=== PATIENT | female | born 1950 | race American Indian/Alaskan Native ===

== ENCOUNTER 2022-04-01 08:46 | Inpatient (IN) | payer OTHER ==
--- NOTE | 2022-04-01 09:27 | Emergency Department Report ---
HPI - General Chief Complaint: Weakness Time Seen by Provider: 04/01/22 09:01 - HPI HPI: Room 19 Patient 71-year-old female present with a chief complaint of lightheadedness/near syncope. The patient states when she woke up this morning she felt fatigued. Patient states she took a shower and then took her dogs outside when she suddenly began to feel dizzy and near syncopal. Patient states her fatigue increase that she came back into her home and sat down. Patient states she still felt dizzy and disoriented so another person in the home called EMS. When EMS arrived they report patient was found to be hypotensive at 70/40 with a heart rate of 36. Patient was administered 1 mg of atropine IV and 500 mils of normal saline with improvement of the patient's vital signs. Upon arrival to the ED the patient was normotensive at 120/74 with a heart rate of 75. Patient states she feels a lot better than when EMS first got there but she still complains of some dizziness currently. Patient denies ever having chest pain, palpitations or nausea/vomiting. Patient states she may have had some shortness of breath. The patient states the only medication she takes are metformin and amlodipine and she has been taking them both for some time. ED Past Medical Hx - Past Medical History Hx Hypertension: Yes Hx Diabetes: Yes Hx of Cancer: Yes (Colon CA status post resection) - Surgical History Hx Breast Surgery: Yes (Lumpectomy (malignant)) Additional Surgical History: Partial colectomy - Family History Family history: no significant - Social History Smoking Status: Never Smoker Substance Use Type: None (Denies illicit drug use) - Medications Home Medications: Home Medications Medication Instructions Recorded Confirmed Last Taken Type Metformin HCl [metFORMIN] 1,000 mg PO BID 04/01/22 04/01/22 Unknown History amLODIPine [Norvasc] 10 mg PO DAILY 04/01/22 04/01/22 Unknown History ED Review of Systems ROS: Stated complaint: WEAKNESS/LOW HEART RATE Other details as noted in HPI Constitutional: malaise Eyes: denies: eye pain ENT: denies: throat pain Respiratory: shortness of breath Cardiovascular: denies: chest pain, palpitations Endocrine: no symptoms reported Gastrointestinal: denies: nausea, vomiting Genitourinary: denies: dysuria Musculoskeletal: denies: back pain Neurological: other (Lightheadedness). denies: headache Physical Exam - Physical Exam Vital Signs: Vital Signs 04/01/22 08:49 Temperature 97.6 F Pulse Rate 75 Respiratory 18 Rate Blood Pressure 120/74 [Left] O2 Sat by Pulse 98 Oximetry Physical Exam: GENERAL: The patient is well-developed well-nourished female lying on stretcher not appearing to be in acute distress. [] HEENT: Normocephalic. Atraumatic. Extraocular motions are intact. Patient has moist mucous membranes. No nystagmus NECK: Supple. Trachea midline CHEST/LUNGS: Clear to auscultation. There is no respiratory distress noted. HEART/CARDIOVASCULAR: Regular. There is no tachycardia. There is no gallop rub or murmur. ABDOMEN: Abdomen is soft, nontender. Patient has normal bowel sounds. There is no abdominal distention. SKIN: There is no rash. There is no edema. There is no diaphoresis. NEURO: The patient is awake, alert, and oriented. The patient is cooperative. The patient has no focal neurologic deficits. The patient has normal speech. Cranial nerves II through XII grossly intact. No dysmetria noted with [id number] bilaterally. MUSCULOSKELETAL: There is no evidence of acute injury. ED Course Vital Signs 04/01/22 08:49 Temperature 97.6 F Pulse Rate 75 Respiratory 18 Rate Blood Pressure 120/74 [Left] O2 Sat by Pulse 98 Oximetry - Consultations Consultation #1: 04/01/22 11:08 [facility] paged 04/01/22 11:22 Case discussed with [place] physician Dr. Cornejo to admit patient at [facility] ED Medical Decision Making - Lab Data Result diagrams: 04/01/22 09:29 04/01/22 09:17 Laboratory Tests 04/01/22 04/01/22 04/01/22 09:17 09:29 09:29 WBC 5.4 RBC 4.47 Hgb 12.7 Hct 37.8 MCV 85 MCH 28 MCHC 34 RDW 13.1 L Plt Count 220 Lymph % (Auto) 11.8 L [place] % (Auto) 4.5 Eos % (Auto) 0.5 Baso % (Auto) 0.5 Lymph # (Auto) 0.6 L [place] # (Auto) 0.2 Eos # (Auto) 0.0 Baso # (Auto) 0.0 Seg Neutrophils % 82.7 H Seg Neutrophils # 4.4 PT 13.9 INR 0.94 Sodium 139 Potassium 3.7 Chloride 102.9 Carbon Dioxide 25 Anion Gap 15 BUN 11 Creatinine 0.8 Estimated GFR > 60 BUN/Creatinine Ratio 14 Glucose 234 H Calcium 8.9 Magnesium 2.10 Total Creatine Kinase 110 CK-MB (CK-2) 1.2 CK-MB (CK-2) Rel Index 1.0 Troponin T < 0.010 TSH Free T4 Urine Color Urine Turbidity Urine pH Urine Protein Urine Glucose (UA) Urine Ketones Urine Blood Urine Nitrite Urine Bilirubin Urine Urobilinogen Ur Leukocyte Esterase Urine WBC (Auto) Urine RBC (Auto) U Epithel Cells (Auto) Urine Bacteria (Auto) Urine Yeast (Budding) 04/01/22 04/01/22 09:29 11:15 WBC RBC Hgb Hct MCV MCH MCHC RDW Plt Count Lymph % (Auto) [place] % (Auto) Eos % (Auto) Baso % (Auto) Lymph # (Auto) [place] # (Auto) Eos # (Auto) Baso # (Auto) Seg Neutrophils % Seg Neutrophils # PT INR Sodium Potassium Chloride Carbon Dioxide Anion Gap BUN Creatinine Estimated GFR BUN/Creatinine Ratio Glucose Calcium Magnesium Total Creatine Kinase CK-MB (CK-2) CK-MB (CK-2) Rel Index Troponin T TSH 0.813 Free T4 1.07 Urine Color Yellow Urine Turbidity Clear Urine pH 6.0 Urine Protein <15 mg/dl Urine Glucose (UA) Neg Urine Ketones Tr Urine Blood Sm Urine Nitrite Neg Urine Bilirubin Neg Urine Urobilinogen < 2 Ur Leukocyte Esterase Mod Urine WBC (Auto) 12.0 H Urine RBC (Auto) 3.0 U Epithel Cells (Auto) 5.0 Urine Bacteria (Auto) 1+ Urine Yeast (Budding) Few - EKG Data -: EKG Interpreted by Me EKG shows normal: sinus rhythm Rate: normal - EKG Data When compared to previous EKG there are: previous EKG unavailable Interpretation: nonspecific ST-T wave sundar (T wave inversion lead V2, V3) - Radiology Data Radiology results: report reviewed (Chest x-ray, CT head), image reviewed (Chest x-ray, CT head) interpreted by me: Chest x-ray-no definite focal infiltrates, no pneumothorax [facility] [address] [place] [address] XRay Report Signed Patient: DUKE NOVA MR#: [id number] 56 : 1950 Acct:[id number] Age/Sex: 71 / F ADM Date: 04/01/22 Loc: ED Attending Dr: Ordering Physician: CHILANGO LAVARADO MD Date of Service: 04/01/22 Procedure(s): XR chest 1V ap Accession Number(s): [id number] cc: CHILANGO ALVARADO MD Fluoro Time In Minutes: CHEST 1 VIEW INDICATION: Bradycardia, hypotension. COMPARISON: None FINDINGS: SUPPORT DEVICES: None. HEART: Within normal limits. LUNGS/PLEURA: No acute air space or interstitial disease. ADDITIONAL FINDINGS: None. IMPRESSION: 1. No acute findings. Signer Name: Geovanni Ha MD Signed: 04/01/2022 9:37 AM Workstation Name: [id number] Transcribed By: VLADIMIR Dictated By: Geovanni Ha MD Electronically Authenticated By: Geovanni Ha MD Signed Date/Time: 04/01/22936 DD/ 6 TD/TT: [facility] [address] [place] [address] Cat Scan Report Signed Patient: DUKE NOVA MR#: [id number] 56 : 1950 Acct:[id number] Age/Sex: 71 / F ADM Date: 04/01/22 Loc: 4A [id number]: FABIO HUSTON MD Ordering Physician: CHILANGO ALVARADO MD Date of Service: 04/01/22 Procedure(s): CT head/brain wo con Accession Number(s): [id number] cc: CHILANGO ALVARADO MD CT HEAD WITHOUT CONTRAST INDICATION / CLINICAL INFORMATION: Lightheadedness. TECHNIQUE: All CT scans at this location are performed using CT dose reduction for ALARA by means of automated exposure control. COMPARISON: None available. FINDINGS: HEMORRHAGE: No evidence of intracranial hemorrhage or extra-axial fluid collection. EXTRA-AXIAL SPACES: Cortical sulci, sylvian fissures and basilar cisterns have an unremarkable appearance. VENTRICULAR SYSTEM: The third and lateral ventricles are of normal size and configuration. CEREBRAL PARENCHYMA: Subtle periventricular and deep white matter lucencies noted consistent with microvascular ischemic change. Findings suggest remote small deep infarction anterior limb right internal capsule and posterior lateral aspect of the left thalamus. No additional areas of abnormal brain parenchymal attenuation are identified. There is no indication of recent infarction. MIDLINE SHIFT OR HERNIATION: There is no mass effect. CEREBELLUM / BRAINSTEM: Brainstem and cerebellum have an unremarkable appearance. MIDLINE STRUCTURES:No abnormalities of the pituitary gland or pineal region are identified. INTRACRANIAL VESSELS:No abnormalities are identified on this noncontrast head CT. ORBITS: Status post bilateral cataract surgery. No additional abnormality. SOFT TISSUES of HEAD: No significant abnormality. CALVARIUM: Evaluation of bone windows reveals no abnormalities. PARANASAL SINUSES / MASTOID AIR CELLS: Visualized portions of the paranasal sinuses are free from inflammatory mucosal disease. Mastoid air cells are normally pneumatized. ADDITIONAL FINDINGS: None. IMPRESSION: 1. 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 2. No acute intracranial abnormality. Signer Name: Piero Plata MD Signed: 04/01/2022 11:55 AM Workstation Name: [id number] Transcribed By: Dictated By: Piero Plata MD Electronically Authenticated By: Piero Plata MD Signed Date/Time: 04/01/22 1155 DD/ 1148 TD/TT: - Differential Diagnosis Symptomatic bradycardia, sick sinus syndrome, hypothyroidism, Critical care attestation.: If time is entered above; I have spent that time in minutes in the direct care of this critically ill patient, excluding procedure time. ED Disposition Clinical Impression: Symptomatic bradycardia Disposition: ADMITTED INPATIENT Is pt being admited?: Yes Does the pt Need Aspirin: Yes Condition: Fair Referrals: PB ANTONIO MD [Primary Care Provider] - 3-5 Days Time of Disposition: 12:12 (Care transferred to hospitalist (Dr. Huston))
--- NOTE | 2022-04-01 09:41 | XRay Report ---
CHEST 1 VIEW INDICATION: Bradycardia, hypotension. COMPARISON: None FINDINGS: SUPPORT DEVICES: None. HEART: Within normal limits. LUNGS/PLEURA: No acute air space or interstitial disease. ADDITIONAL FINDINGS: None. IMPRESSION: 1. No acute findings. Signer Name: Geovanni Ha MD Signed: 04/01/2022 9:37 AM Workstation Name: [id number]
[2022-04-01 09:59] LABS: Basophils % (Auto) 0.5 % (0.0-1.8); Eosinophils % (Auto) 0.5 % (0.0-4.3); Hematocrit 37.8 % (30.3-42.9); Hemoglobin 12.7 gm/dl (10.1-14.3); Lymphocytes # (Auto) 0.6 K/mm3 (1.2-5.4); Lymphocytes % (Auto) 11.8 % (13.4-35.0); Mean Corpuscular HGB Conc 34 % (30-34); Mean Corpuscular Volume 85 fl (79-97); Monocytes # (Auto) 0.2 K/mm3 (0.0-0.8); Monocytes % (Auto) 4.5 % (0.0-7.3); Platelet Count 220 K/mm3 (140-440); Red Blood Count 4.47 M/mm3 (3.65-5.03); Red Cell Distribution Width 13.1 % (13.2-15.2)
[2022-04-01 10:11] LABS: INR 0.94 (0.87-1.13)
[2022-04-01 10:20] LABS: BUN/Creatinine Ratio 14; Blood Urea Nitrogen 11 mg/dL (7-17); Calcium 8.9 mg/dL (8.4-10.2); Creatine Kinase MB 1.2 ng/mL (0.0-4.0); Hemolysis Index 10
[2022-04-01 10:26] LABS: Free T4 (Free Thyroxine) 1.07 ng/dL (0.76-1.46)
--- NOTE | 2022-04-01 11:01 | Electrocardiograph Report ---
[facility] Test Date: 2022-04-01 Test Time: 09:04:49 Pat Name: DUKE NOVA Department: Room: Gender: F Machine [employer]: TV : 1950 Requested By: CHILANGO ALVARADO Order Number: [id number] Reading MD: Ajith Oneill Measurements Intervals Chrisman Rate: 69 P: 55 VT: 165 QRS: -23 QRSD: 91 T: 6 QT: 416 QTc: 445 Interpretive Statements Sinus rhythm INCOMPLETE RIGHT BUNDLE BRANCH BLOCK Probable left atrial enlargement Probable left ventricular hypertrophy Borderline T abnormalities, diffuse leads No previous ECG available for comparison Electronically Signed On 04-01-2022 11:00:57 EDT by Ajith Oneill
[2022-04-01] MEDS ORDERED: ACETAMINOPHEN 325 MG TAB PO PRN (11:23)
[2022-04-01] MEDS ORDERED: MORPHINE 2 MG/1 ML INJ IV PRN (11:23)
[2022-04-01] MEDS ORDERED: ONDANSETRON 4 MG/2 ML INJ IV PRN (11:23)
[2022-04-01 11:59] LABS: Bilirubin,Urine NEG (Negative); Blood,Urine SM (Negative); Color,Urine Yellow (Yellow); Protein,Urine <15 mg/dL mg/dL (Negative)
--- NOTE | 2022-04-01 12:00 | Cat Scan Report ---
CT HEAD WITHOUT CONTRAST INDICATION / CLINICAL INFORMATION: Lightheadedness. TECHNIQUE: All CT scans at this location are performed using CT dose reduction for ALARA by means of automated e xposure control. COMPARISON: None available. FINDINGS: HEMORRHAGE: No evidence of intracranial hemorrhage or extra-axial fluid collection. EXTRA-AXIAL SPACES: Cortical sulci, sylvian fissures and basilar cisterns have an unremarkable appear ance. VENTRICULAR SYSTEM: The third and lateral ventricles are of normal size and configuration. CEREBRAL PARENCHYMA: Subtle periventricular and deep white matter lucencies noted consistent with anh rovascular ischemic change. Findings suggest remote small deep infarction anterior limb right interna l capsule and posterior lateral aspect of the left thalamus. No additional areas of abnormal brain pa renchymal attenuation are identified. There is no indication of recent infarction. MIDLINE SHIFT OR HERNIATION: There is no mass effect. CEREBELLUM / BRAINSTEM: Brainstem and cerebellum have an unremarkable appearance. MIDLINE STRUCTURES:No abnormalities of the pituitary gland or pineal region are identified. INTRACRANIAL VESSELS:No abnormalities are identified on this noncontrast head CT. ORBITS: Status post bilateral cataract surgery. No additional abnormality. SOFT TISSUES of HEAD: No significant abnormality. CALVARIUM: Evaluation of bone windows reveals no abnormalities. PARANASAL SINUSES / MASTOID AIR CELLS: Visualized portions of the paranasal sinuses are free from inf lammatory mucosal disease. Mastoid air cells are normally pneumatized. ADDITIONAL FINDINGS: None. IMPRESSION: 1. 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 2. No acute intracranial abnormality. Signer Name: Piero Plata MD Signed: 04/01/2022 11:55 AM Workstation Name: [id number]
[2022-04-01 12:06] LABS: Bacteria,Urine 1+ /HPF (Negative); Urobilinogen,Urine < 2 mg/dL (<2.0)
[2022-04-01] MEDS ORDERED: traMADol 50 MG TAB PO ONE (21:16)
[2022-04-02] MEDS ORDERED: FLUTICASONE PROPIONATE NASAL SPRAY 16 GM NS PRN (04:37)
--- NOTE | 2022-04-02 06:50 | History and Physical Report ---
History of Present Illness Date of examination: 04/01/22 Date of admission: 04/01/22 11:23 Chief complaint: Passed out x2 this afternoon History of present illness: 71-year-old female with history of hypertension and type 2 diabetes apparently passed out twice as per the daughter at bedside. [place] lightheaded and passed out. Daughter caught her in time preventing him fall to the floor. Patient conscious about the events and corroborates. As per EMS patient was hypotensive with blood pressure of 70/40 and a heart rate of 36. In the ER bladder and blood pressure improved with IV fluids and atropine. During my examination heart rate versus the 60s consistently. Patient is alert and oriented and giving appropriate history. Moving all 4 extremities. - Past Medical History --Hypertension: Yes --Diabetes: Yes --Colon CA status post resection) - Surgical History --Breast Surgery: Yes (Lumpectomy (malignant)) --Additional Surgical History: Partial colectomy - Family History --Family history: no significant - Social History --Smoking Status: Never Smoker --Substance Use Type: None (Denies illicit drug use) - Medications --Home Medications: Home Medications Medication Instructions Recorded Confirmed Last Taken Type Metformin HCl [metFORMIN] 1,000 mg PO BID 04/01/22 04/01/22 Unknown History amLODIPine [Norvasc] 10 mg PO DAILY 04/01/22 04/01/22 Unknown History Review of Systems ROS: Stated complaint: WEAKNESS/LOW HEART RATE Other details as noted in HPI Constitutional: malaise Eyes: denies: eye pain ENT: denies: throat pain Respiratory: shortness of breath Cardiovascular: denies: chest pain, palpitations Endocrine: no symptoms reported Gastrointestinal: denies: nausea, vomiting Genitourinary: denies: dysuria Musculoskeletal: denies: back pain Neurological: other (Lightheadedness). denies: headache Medications and Allergies Allergies Allergy/AdvReac Type Severity Reaction Status Date / Time [id number] Reductase Allergy Unknown Verified 04/01/22 09:24 Inhibitor Home Medications Medication Instructions Recorded Confirmed Last Taken Type Metformin HCl [metFORMIN] 1,000 mg PO BID 04/01/22 04/01/22 Unknown History amLODIPine [Norvasc] 10 mg PO DAILY 04/01/22 04/01/22 Unknown History Active Meds: Active Medications Acetaminophen (Acetaminophen 325 Mg Tab) 650 mg PO Q4H PRN PRN Reason: Pain MILD(1-3)/Fever >100.5/HOPSON Last Admin: 04/01/22 17:33 Dose: 650 mg Fluticasone Propionate (Fluticasone Propionate Nasal [place] 16 Gm) 100 mcg NS QDAY PRN PRN Reason: sinus congestion Last Admin: 04/02/22 05:14 Dose: 100 mcg Morphine Sulfate (Morphine 2 Mg/1 Ml Inj) 2 mg IV Q4H PRN PRN Reason: Pain, Moderate (4-6) Ondansetron HCl (Ondansetron 4 Mg/2 Ml Inj) 4 mg IV Q8H PRN PRN Reason: Nausea And Vomiting Sodium Chloride (Sodium Chloride 0.9% 10 Ml Flush Syringe) 10 ml IV BID YOEL Last Admin: 04/01/22 22:19 Dose: 10 ml Sodium Chloride (Sodium Chloride 0.9% 10 Ml Flush Syringe) 10 ml IV PRN PRN PRN Reason: LINE FLUSH Exam - Constitutional Vitals: Temp Pulse Resp BP Pulse Ox 98.3 F 72 16 148/62 93 04/02/22 05:06 04/02/22 05:06 04/02/22 05:06 04/02/22 05:06 04/02/22 05:06 General appearance: Present: no acute distress, well-nourished - EENT Eyes: Present: PERRL ENT: hearing intact, clear oral mucosa - Neck Neck: Present: supple, normal ROM - Respiratory Respiratory effort: normal Respiratory: bilateral: CTA - Cardiovascular Heart rate: 60 Rhythm: regular Heart Sounds: Present: S1 & S2. Absent: rub, click - Extremities Extremities: no ischemia, pulses intact, pulses symmetrical, No edema Peripheral Pulses: within normal limits - Abdominal General gastrointestinal: Present: soft, non-tender, non-distended, normal bowel sounds Female genitourinary: Present: normal - Integumentary Integumentary: Present: clear, warm, dry - Musculoskeletal Musculoskeletal: gait normal, strength equal bilaterally - Psychiatric Psychiatric: appropriate mood/affect, intact judgment & insight - Neurologic Neurologic: CNII-XII intact, moves all extremities - Allied Health Allied health notes reviewed: nursing, case management HEART Score - HEART Score Troponin: Troponin T < 0.010 ng/mL (0.00-0.029) 04/01/22 09:17 Results - Labs CBC & Chem 7: 04/01/22 09:29 04/01/22 09:17 Labs: Laboratory Last Values WBC 5.4 K/mm3 (4.5-11.0) 04/01/22 09: RBC 4.47 M/mm3 (3.65-5.03) 04/01/22 09: Hgb 12.7 gm/dl (10.1-14.3) 04/01/22: Hct 37.8 % (30.3-42.9) 04/01/22 09: MCV 85 fl (79-97) 04/01/22 09: MCH 28 pg (28-32) 04/01/22 09: MCHC 34 % (30-34) 04/01/22 09: RDW 13.1 % (13.2-15.2) L 04/01/22 09: Plt Count 220 K/mm3 (140-440) 04/01/22 09: Lymph % (Auto) 11.8 % (13.4-35.0) L 04/01/22 09: [place] % (Auto) 4.5 % (0.0-7.3) 04/01/22 09: Eos % (Auto) 0.5 % (0.0-4.3) 04/01/22: Baso % (Auto) 0.5 % (0.0-1.8) 04/01/22: Lymph # (Auto) 0.6 K/mm3 (1.2-5.4) L 04/01/22: [place] # (Auto) 0.2 K/mm3 (0.0-0.8) 04/01/22 09: Eos # (Auto) 0.0 K/mm3 (0.0-0.4) 04/01/22: Baso # (Auto) 0.0 K/mm3 (0.0-0.1) 04/01/22 09: Seg Neutrophils % 82.7 % (40.0-70.0) H 04/01/22 09: Seg Neutrophils # 4.4 K/mm3 (1.8-7.7) 04/01/22 09: PT 13.9 Sec. (12.2-14.9) 04/01/22 09:29 INR 0.94 (0.87-1.13) 04/01/22 09:29 VBG pH 7.298 (7.320-7.420) L 04/01/22 Unknown Sodium 139 mmol/L (137-145) 04/01/22 09:17 Potassium 3.7 mmol/L (3.6-5.0) 04/01/22 09:17 Chloride 102.9 mmol/L (98-107) 04/01/22 09:17 Carbon Dioxide 25 mmol/L (22-30) 04/01/22 09:17 Anion Gap 15 mmol/L 04/01/22 09:17 BUN 11 mg/dL (7-17) 04/01/22 09:17 Creatinine 0.8 mg/dL (0.6-1.2) 04/01/22 09:17 Estimated GFR > 60 ml/min 04/01/22 09:17 BUN/Creatinine Ratio 14 % 04/01/22 09:17 Glucose 234 mg/dL (65-100) H 04/01/22 09:17 Calcium 8.9 mg/dL (8.4-10.2) 04/01/22 09:17 Magnesium 2.10 mg/dL (1.7-2.3) 04/01/22 09:17 Total Creatine Kinase 110 units/L (30-135) 04/01/22 09:17 CK-MB (CK-2) 1.2 ng/mL (0.0-4.0) 04/01/22 09:17 CK-MB (CK-2) Rel Index 1.0 (0-4) 04/01/22 09:17 Troponin T < 0.010 ng/mL (0.00-0.029) 04/01/22 09:17 TSH 0.813 mlU/mL (0.270-4.200) 04/01/22 09:29 Free T4 1.07 ng/dL (0.76-1.46) 04/01/22 09:29 Urine Color Yellow (Yellow) 04/01/22 11:15 Urine Turbidity Clear (Clear) 04/01/22 11:15 Urine pH 6.0 (5.0-7.0) 04/01/22 11:15 Urine Protein <15 mg/dl mg/dL (Negative) 04/01/22 11:15 Urine Glucose (UA) Neg mg/dL (Negative) 04/01/22 11:15 Urine Ketones Tr mg/dL (Negative) 04/01/22 11:15 Urine Blood Sm (Negative) 04/01/22 11:15 Urine Nitrite Neg (Negative) 04/01/22 11:15 Urine Bilirubin Neg (Negative) 04/01/22 11:15 Urine Urobilinogen < 2 mg/dL (<2.0) 04/01/22 11:15 Ur Leukocyte Esterase Mod (Negative) 04/01/22 11:15 Urine WBC (Auto) 12.0 /HPF (0.0-6.0) H 04/01/22 11:15 Urine RBC (Auto) 3.0 /HPF (0.0-6.0) 04/01/22 11:15 U Epithel Cells (Auto) 5.0 /HPF (0-13.0) 04/01/22 11:15 Urine Bacteria (Auto) 1+ /HPF (Negative) 04/01/22 11:15 Urine Yeast (Budding) Few /HPF 04/01/22 11:15 - Imaging and Cardiology EKG: report reviewed (Sinus rhythm heart rate of 69/min) Chest x-ray: report reviewed Imaging and Cardiology: . Head CT Microvascular ischemic changes and cerebral remote small deep infarctions as noted No acute intracranial abnormality Chest x-ray No acute findings Jones/IV: Voiding Method Toilet Assessment and Plan Advance Directives: Yes (Full code) VTE prophylaxis?: Chemical Plan of care discussed with patient/family: Yes - Patient Problems (1) Syncope and collapse Current Visit: Yes Status: Acute Plan to address problem: Syncope work-up Echocardiogram for ejection fraction and wall motion abnormalities and valvular function Carotid duplex scan (2) Symptomatic bradycardia Current Visit: Yes Status: Acute Plan to address problem: Bradycardia resolved Cardiology consult requested (3) Hypertension Current Visit: Yes Status: Chronic Qualifiers: Hypertension type: primary hypertension Qualified Code(s): I10 - Essential (primary) hypertension Plan to address problem: Continue antihypertensives and adjust medicines as necessary (4) T2DM (type 2 diabetes mellitus) Current Visit: Yes Status: Chronic 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 Patient is full code. Patient acknowledged understanding with the care plan. +30 minutes.
--- NOTE | 2022-04-02 08:12 | Progress Note ---
Assessment and Plan Assessment and plan: Advance Directives: Yes (Full code) VTE prophylaxis?: Chemical Plan of care discussed with patient/family: Yes - Patient Problems --Syncope and collapse/due to autonomic malfunction Fall precautions, orthostats Syncope work-up CT head without contrast:Microvascular ischemic changes and several remote small deep infarctions noted no acute intracranial abnormality Carotid Doppler less than 50% stenosis bilateral internal carotid arteries Echocardiogram; LVEF 55 to 60%, mild concentric left ventricular hypertrophy Chest x-ray no acute abnormality noted. Physical therapy occupational therapy Discharge planning per case management when patient is stable --Symptomatic bradycardia/resolved Brief episode of bradycardia last night on the ER Hold beta-blockers, fall precautions Cardiology evaluation and recommendation noted and appreciated Recommend continuous Holter for 1 month monitoring --Hypertension. Moderate control Continue antihypertensives and as needed medications Advised compliance with medications --T2DM (type 2 diabetes mellitus) Accu-Cheks , sliding scale coverage , ADA diet , insulin as needed continue metformin and coverage Check hemoglobin A1c --DVT prophylaxis On subcu heparin and GI prophylaxis -- Advance care planning Disease education conducted care plan discussed, prognosis and diagnosis discussed. Patient reports discussed, cardiology evaluation and recommendations discussed Patient has few questions, answered all of them, patient verbalized understanding Patient is full code. Patient acknowledged understanding with the care plan. +30 minutes. We will closely monitor the patient and adjust the management as needed Plan of care patient and her nurse Discharge planning; per case management Disposition; follow clinically, follow PT evaluation recommendation Discharge home tomorrow if stable [place] patient; call [phone] discussed the case with [place] physician, physician was busy I left a callback number to discuss the patient's plan of care. History Interval history: I seen and examined the patient at the bedside Patient chart and medications reviewed Patient was admitted with syncopal episode x2 Syncope work-up is in progress Patient complains of some mild dizziness Vital signs reviewed Hospitalist Physical - Constitutional Vitals: Temp Pulse Resp BP Pulse Ox 98.4 F 70 16 137/65 97 04/02/22 07:35 04/02/22 07:35 04/02/22 07:35 04/02/22 07:35 04/02/22 07:35 General appearance: Present: no acute distress, well-nourished - EENT Eyes: Present: PERRL, EOM intact - Neck Neck: Present: supple, normal ROM - Respiratory Respiratory effort: normal Respiratory: bilateral: diminished, negative: rales, rhonchi, wheezing - Cardiovascular Rhythm: regular Heart Sounds: Present: S1 & S2 - Extremities Extremities: no ischemia, No edema - Abdominal General gastrointestinal: soft, non-tender, non-distended, normal bowel sounds - Integumentary Integumentary: Present: clear, warm - Psychiatric Psychiatric: appropriate mood/affect, cooperative - Neurologic Neurologic: CNII-XII intact, moves all extremities HEART Score - HEART Score Troponin: Troponin T < 0.010 ng/mL (0.00-0.029) 04/01/22 09:17 Results - Labs CBC & Chem 7: 04/01/22 09:29 04/01/22 09:17 Labs: Laboratory Last Values WBC 5.4 K/mm3 (4.5-11.0) 04/01/22 09: RBC 4.47 M/mm3 (3.65-5.03) 04/01/22 09: Hgb 12.7 gm/dl (10.1-14.3) 04/01/22 09: Hct 37.8 % (30.3-42.9) 04/01/22 09: MCV 85 fl (79-97) 04/01/22 09: MCH 28 pg (28-32) 04/01/22 09: MCHC 34 % (30-34) 04/01/22 09: RDW 13.1 % (13.2-15.2) L 04/01/22 09: Plt Count 220 K/mm3 (140-440) 04/01/22 09: Lymph % (Auto) 11.8 % (13.4-35.0) L 04/01/22 09: [place] % (Auto) 4.5 % (0.0-7.3) 04/01/22 09: Eos % (Auto) 0.5 % (0.0-4.3) 04/01/22 09: Baso % (Auto) 0.5 % (0.0-1.8) 04/01/22 09: Lymph # (Auto) 0.6 K/mm3 (1.2-5.4) L 04/01/22 09: [place] # (Auto) 0.2 K/mm3 (0.0-0.8) 04/01/22 09:29 Eos # (Auto) 0.0 K/mm3 (0.0-0.4) 04/01/22 09:29 Baso # (Auto) 0.0 K/mm3 (0.0-0.1) 04/01/22 09:29 Seg Neutrophils % 82.7 % (40.0-70.0) H 04/01/22 09:29 Seg Neutrophils # 4.4 K/mm3 (1.8-7.7) 04/01/22 09:29 PT 13.9 Sec. (12.2-14.9) 04/01/22 09:29 INR 0.94 (0.87-1.13) 04/01/22 09:29 VBG pH 7.298 (7.320-7.420) L 04/01/22 Unknown Sodium 139 mmol/L (137-145) 04/01/22 09:17 Potassium 3.7 mmol/L (3.6-5.0) 04/01/22 09:17 Chloride 102.9 mmol/L (98-107) 04/01/22 09:17 Carbon Dioxide 25 mmol/L (22-30) 04/01/22 09:17 Anion Gap 15 mmol/L 04/01/22 09:17 BUN 11 mg/dL (7-17) 04/01/22 09:17 Creatinine 0.8 mg/dL (0.6-1.2) 04/01/22 09:17 Estimated GFR > 60 ml/min 04/01/22 09:17 BUN/Creatinine Ratio 14 % 04/01/22 09:17 Glucose 234 mg/dL (65-100) H 04/01/22 09:17 Calcium 8.9 mg/dL (8.4-10.2) 04/01/22 09:17 Magnesium 2.10 mg/dL (1.7-2.3) 04/01/22 09:17 Total Creatine Kinase 110 units/L (30-135) 04/01/22 09:17 CK-MB (CK-2) 1.2 ng/mL (0.0-4.0) 04/01/22 09:17 CK-MB (CK-2) Rel Index 1.0 (0-4) 04/01/22 09:17 Troponin T < 0.010 ng/mL (0.00-0.029) 04/01/22 09: TSH 0.813 mlU/mL (0.270-4.200) 04/01/22 09: Free T4 1.07 ng/dL (0.76-1.46) 04/01/22 09:29 Urine Color Yellow (Yellow) 04/01/22 11:15 Urine Turbidity Clear (Clear) 04/01/22 11:15 Urine pH 6.0 (5.0-7.0) 04/01/22 11:15 Urine Protein <15 mg/dl mg/dL (Negative) 04/01/22 11:15 Urine Glucose (UA) Neg mg/dL (Negative) 04/01/22 11:15 Urine Ketones Tr mg/dL (Negative) 04/01/22 11:15 Urine Blood Sm (Negative) 04/01/22 11:15 Urine Nitrite Neg (Negative) 04/01/22 11:15 Urine Bilirubin Neg (Negative) 04/01/22 11:15 Urine Urobilinogen < 2 mg/dL (<2.0) 04/01/22 11:15 Ur Leukocyte Esterase Mod (Negative) 04/01/22 11:15 Urine WBC (Auto) 12.0 /HPF (0.0-6.0) H 04/01/22 11:15 Urine RBC (Auto) 3.0 /HPF (0.0-6.0) 04/01/22 11:15 U Epithel Cells (Auto) 5.0 /HPF (0-13.0) 04/01/22 11:15 Urine Bacteria (Auto) 1+ /HPF (Negative) 04/01/22 11:15 Urine Yeast (Budding) Few /HPF 04/01/22 11:15 Jones/IV: Voiding Method Toilet Active Medications - Current Medications Current Medications: Generic Name Dose Route Start Last Admin Trade Name Freq PRN Reason Stop Dose Admin Acetaminophen 650 mg 04/01/22 11:23 04/01/22 17:33 Acetaminophen 325 Mg Tab PO 650 mg Q4H PRN Administration Pain MILD(1-3)/Fever >100.5/HOPSON Fluticasone Propionate 100 mcg 04/02/22 04:37 04/02/22 05:14 Fluticasone Propionate Nasal [place] 16 Gm NS 100 mcg QDAY PRN Administration sinus congestion Morphine Sulfate 2 mg 04/01/22 11:23 Morphine 2 Mg/1 Ml Inj IV Q4H PRN Pain, Moderate (4-6) Ondansetron HCl 4 mg 04/01/22 11:23 Ondansetron 4 Mg/2 Ml Inj IV Q8H PRN Nausea And Vomiting Sodium Chloride 10 ml 04/01/22 22:00 04/01/22 22:19 Sodium Chloride 0.9% 10 Ml Flush Syringe IV 10 ml BID YOEL Administration Sodium Chloride 10 ml 04/01/22 11:23 Sodium Chloride 0.9% 10 Ml Flush Syringe IV PRN PRN LINE FLUSH
--- NOTE | 2022-04-02 11:08 | Consultation ---
History of Present Illness Consult date: 04/02/22 Consult reason: bradycardia, syncope History of present illness: The patient is a 71-year-old woman who presented to the hospital with a 2-day history of weakness and syncope. Her symptoms began 2 days ago, following a routine visit to her doctor's office at [place], states that she received tetanus and shingles vaccines. Later that afternoon and evening, she suffered a cold exposure, was outside too late at night while her car was being repaired. The next day, she states that she felt weak and was unable to get out of bed, and when she did eventually was too weak to stand up, resulting in multiple falls. A neighbor called the EMS. The district court reporter are reported to have found her with a systolic blood pressure of 70, and a heart rate of 36. She was given an IV medication which brought up her heart rate, presumably atropine. Since her hospitalization, there have been no further symptoms, ECG on presentation was normal sinus rhythm at 69. On nanny/household manager, there has been no further bradycardia reported. Comorbidities include chronic hypertension for which she was on amlodipine, and diabetes for which she was on metformin. At the time of her contact with EMS she states that her blood sugar measured at 250. Additional work-up on presentation, chest x-ray was normal-sized cardiac silhouette and clear lungs. A thyroid stimulating hormone level measured in the emergency room was normal. Past History Past Medical History: diabetes, hypertension Medications and Allergies Allergies Allergy/AdvReac Type Severity Reaction Status Date / Time [id number] Reductase Allergy Unknown Verified 04/01/22 09:24 Inhibitor Home Medications Medication Instructions Recorded Confirmed Last Taken Type Metformin HCl [metFORMIN] 1,000 mg PO BID 04/01/22 04/01/22 Unknown History amLODIPine [Norvasc] 10 mg PO DAILY 04/01/22 04/01/22 Unknown History Active Meds: Active Medications Acetaminophen (Acetaminophen 325 Mg Tab) 650 mg PO Q4H PRN PRN Reason: Pain MILD(1-3)/Fever >100.5/HOPSON Last Admin: 04/01/22 17:33 Dose: 650 mg Fluticasone Propionate (Fluticasone Propionate Nasal [place] 16 Gm) 100 mcg NS QDAY PRN PRN Reason: sinus congestion Last Admin: 04/02/22 05:14 Dose: 100 mcg Insulin Human Lispro (Insulin Lispro 100 Unit/Ml) 0 unit SUB-Q ACHS YOEL; Protocol Morphine Sulfate (Morphine 2 Mg/1 Ml Inj) 2 mg IV Q4H PRN PRN Reason: Pain, Moderate (4-6) Ondansetron HCl (Ondansetron 4 Mg/2 Ml Inj) 4 mg IV Q8H PRN PRN Reason: Nausea And Vomiting Sodium Chloride (Sodium Chloride 0.9% 10 Ml Flush Syringe) 10 ml IV BID YOEL Last Admin: 04/01/22 22:19 Dose: 10 ml Sodium Chloride (Sodium Chloride 0.9% 10 Ml Flush Syringe) 10 ml IV PRN PRN PRN Reason: LINE FLUSH Review of Systems Cardiovascular: syncope, lightheadedness, no chest pain, no orthopnea, no palpitations, no rapid/irregular heart beat, no edema, no shortness of breath Physical Examination Vital Signs Temp Pulse Resp BP Pulse Ox 97.6 F 75 18 120/74 98 04/01/22 08:49 04/01/22 08:49 04/01/22 08:49 04/01/22 08:49 04/01/22 08:49 General appearance: no acute distress HEENT: Positive: PERRL Neck: Positive: neck supple Cardiac: Positive: Reg Rate and Rhythm Lungs: Positive: clear to auscultation Neuro: Positive: Grossly Intact Abdomen: Positive: Soft Female genitourinary: deferred Skin: Positive: Clear Extremities: Absent: normal Results 04/01/22 09:29 04/01/22 09:17 EKG interpretations - Telemetry EKG Rhythm: Sinus Rhythm (Heart rate 69, left ventricular hypertrophy by voltage criteria, no acute ST or T wave changes) Assessment and Plan - Patient Problems (1) Syncope and collapse Current Visit: Yes Status: Acute Plan to address problem: Patient presents with weakness, and syncope associated with poor oral intake, following tetanus and shingles vaccines. It is uncertain if her renal constitutional symptoms were related to either or both of the vaccine shots she received. Heart rate of 36 at the time of contact with district court reporter is unlikely primary etiology of her syncope. We have ordered an echocardiogram for left ventricular function assessment, continue telemetry monitoring. As outpatient, patient will need 30-day event monitor for bradycardia and syncope assessment.
--- NOTE | 2022-04-02 14:49 | Vascular Lab Report ---
DUPLEX DOPPLER ULTRASOUND CAROTID, BILATERAL INDICATION / CLINICAL INFORMATION: Syncope. COMPARISON: None available. FINDINGS: RIGHT CAROTID: Mild noncalcified atherosclerotic plaque. - PLAQUE ESTIMATE (%): < 50% - CCA velocity: 87 cm/sec. - ICA peak systolic velocity: 108 cm/sec. - ICA/CCA PSV Ratio: Less than 2. Right Vertebral Artery: Antegrade flow. LEFT CAROTID: Mild to moderate noncalcified atherosclerotic plaque. - PLAQUE ESTIMATE (%): < 50% - CCA velocity: 117 cm/sec. - ICA peak systolic velocity: 106 cm/sec. - ICA/CCA PSV Ratio: Less than 2. Left Vertebral Artery: Antegrade flow. IMPRESSION: 1. Right Internal Carotid Artery: Less than 50% diameter stenosis. 2. Left Internal Carotid Artery: Less than 50% diameter stenosis. Velocity criteria are extrapolated from diameter data as defined by the Society of Radiologists in [facility] Consensus Conference, Radiology 2003; 229;340-346. NO STENOSIS (NORMAL) - Plaque = none; ICA PSV < 125 cm/sec; ICA/CCA PSV Ratio < 2.0 <50% STENOSIS - Plaque < 50%; ICA PSV < 125 cm/sec; ICA/CCA PSV Ratio < 2.0 50-69% STENOSIS - Plaque > 50%; ICA PSV = 125-230 cm/sec; ICA/CCA PSV Ratio = 2.0-4.0 >70% BUT <100% STENOSIS - Plaque > 50%; ICA PSV > 230 cm/sec; ICA/CCA PSV Ratio > 4.0 NEAR OCCLUSION - Plaque = visible lumen; ICA PSV = high/low/none; ICA/CCA PSV Ratio = variable TOTAL OCCLUSION - Plaque = no lumen; ICA PSV = none; ICA/CCA PSV Ratio = N/A Scribed by: Palmira Portillo RDMS, RVT, RMSKS Scribed: 04/02/2022 1:42 PM I have reviewed the images, agree with this report, and edited this report as needed. Signer Name: Jos Kimball MD Signed: 04/02/2022 2:44 PM Workstation Name: [id number]
[2022-04-02] MEDS: INSULIN LISPRO 100 UNIT/ML SUB-Q SCH ×2 (15:46→18:55)
[2022-04-02] MEDS ORDERED: HYDROcodone/ACETAMINOPHEN 5-325 MG TAB PO PRN (17:00)
--- NOTE | 2022-04-03 08:55 | Discharge Summary ---
Providers - Providers Date of Admission: 04/01/22 11:23 Date of discharge: 04/03/22 Attending physician: MILAD HERNANDEZ 04/02/22 06:58 Consult to Physician [CONS] Routine Comment: Consulting Provider: CHRISTIAN DOMINGUEZ Physician Instructions: Reason For Exam: Symptomatic bradycardia 04/02/22 08:23 Physical Therapy Evaluation and Treat [CONS] Routine Comment: DC needs Reason For Exam: Syncope/general debility evaluate and treat 04/02/22 19:02 Occupational Therapy Evaluate and Treat [CONS] Routine Comment: Reason For Exam: Evaluate and treat/unsteady gait syncope/DC needs Primary care physician: PB ANTONIO Hospitalization Reason for admission: syncope Condition: Fair Hospital course: The patient is a 71-year-old woman who presented to the hospital with a 2-day history of weakness and syncope. 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 Later that afternoon and evening, she suffered a cold exposure, was outside too late at night while her car was being repaired. The next day, she states that she felt weak and was unable to get out of bed, and when she did eventually was too weak to stand up, resulting in multiple falls. A neighbor called the EMS. The timing machine operator are reported to have found her with a systolic blood pressure of 70, and a heart rate of 36. She was given an IV medication which brought up her heart rate, presumably atropine. Since her hospitalization, there have been no further symptoms, ECG on presentation was normal sinus rhythm at 69. On senior product designer, there has been no further bradycardia reported. Comorbidities include chronic hypertension for which she was on amlodipine, and diabetes for which she was on metformin. At the time of her contact with EMS she states that her blood sugar measured at 250. Additional work-up on presentation, chest x-ray was normal-sized cardiac silhouette and clear lungs. A thyroid stimulating hormone level measured in the emergency room was normal. Cardiology was consulted for further evaluation. Cardiology reports a heart rate of 36 was unlikely primary etiology of presyncope. Cardiology recommended echocardiogram which revealed left ventricular size and function normal with mild concentric left ventricular hypertrophy and LVEF of 55-60%. Patient had mild pulmonary hypertension 35-[address] scan revealed no CVA with microvascular ischemic changes and several remote small deep infarctions but no acute abnormality. Patient is felt to receive maximal hospital benefit and will be discharged home. Cardiology recommends 30-day Holter monitor as outpatient. Patient will have follow-up instructions for cardiology. Dedicated discharge time 32 minutes Disposition: 01 HOME / SELF CARE / HOMELESS Final Discharge Diagnosis (Prints w/discharge instructions): Syncope, autonomic dysfunction, symptomatic bradycardia, hypertension, generalized debility and weakness, diabetes mellitus type 2, Core Measure Documentation - Palliative Care Palliative Care/ Comfort Measures: Not Applicable - Core Measures Any of the following diagnoses?: none Exam - Constitutional Vitals: Temp Pulse Resp BP Pulse Ox 97.8 F 64 16 144/70 98 04/03/22 03:38 04/03/22 03:38 04/03/22 03:38 04/03/22 03:38 04/03/22 03:38 General appearance: Present: no acute distress, well-nourished - EENT Eyes: Present: PERRL ENT: hearing intact, clear oral mucosa - Neck Neck: Present: supple, normal ROM - Respiratory Respiratory effort: normal Respiratory: bilateral: CTA - Cardiovascular Heart Sounds: Present: S1 & S2. Absent: rub, click - Extremities Extremities: pulses symmetrical, No edema Peripheral Pulses: within normal limits - Abdominal General gastrointestinal: Present: soft, non-tender, non-distended, normal bowel sounds Female genitourinary: Present: normal - Integumentary Integumentary: Present: clear, warm, dry - Musculoskeletal Musculoskeletal: gait normal, strength equal bilaterally - Psychiatric Psychiatric: appropriate mood/affect, intact judgment & insight - Neurologic Neurologic: CNII-XII intact, moves all extremities Plan Activity: advance as tolerated Weight Bearing Status: Weight Bear as Tolerated Diet: diabetic Additional Instructions: 30-day Holter monitor with cardiology follow-up as outpatient Follow up with: PB ANTONIO MD [Primary Care Provider] - 3-5 Days CHRISTIAN DOMINGUEZ MD [Staff Physician] - 7 Days
[2022-04-03] MEDS: INSULIN LISPRO 100 UNIT/ML SUB-Q SCH (09:29)
[2022-04-03 10:23] VITALS: BP 128/80
--- NOTE | 2022-04-03 12:26 | Progress Note ---
Assessment and Plan - Patient Problems (1) Syncope and collapse Current Visit: Yes Status: Acute Plan to address problem: Patient presents with weakness, and syncope associated with poor oral intake, following tetanus and shingles vaccines. It is uncertain if her generalized constitutional symptoms were related to either or both of the vaccine shots she received. Heart rate of 36 at the time of contact with rn x ray is unlikely primary etiology of her weakness and syncope. During her period of monitoring in the hospital, she has maintained a normal stable sinus rhythm. Echocardiogram shows normal left ventricular systolic function, ejection fraction 55 to 60%. Stable for cardiac discharge in the absence of further cardiac symptoms. As outpatient, patient will need 30-day event monitor for further cardiac monitoring. Subjective Date of service: 04/03/22 Principal diagnosis: Bradycardia Interval history: Patient is comfortable, no cardiac complaints, no new cardiac events reported. She remains in a stable sinus rhythm, heart rate 77. Objective Vital Signs Temp Pulse Resp Resp BP BP Pulse Ox 04/03/22 10:00 108 H 98 04/03/22 08:37 98.5 F 87 18 128/80 98 04/03/22 03:38 97.8 F 64 16 144/70 98 04/03/22 00:08 98.4 F 65 16 143/75 98 04/02/22 22:00 63 20 98 04/02/22 20:19 98.0 F 69 16 127/58 99 04/02/22 16:26 98.0 F 69 18 147/69 98 - Physical Examination General: Appears Well, No Apparent Distress HEENT: Positive: PERRL Neck: Positive: neck supple Cardiac: Positive: Reg Rate and Rhythm Lungs: Positive: clear to auscultation Neuro: Positive: Grossly Intact Abdomen: Positive: Soft Skin: Positive: Clear Extremities: Absent: normal - Imaging and Cardiology EKG: report reviewed (Sinus rhythm heart rate of 69/min)
== END 2022-04-03 13:27 | disposition home or self-care (01) | DRG 74 ==
LOC: ED 08:46 → 4A 11:23
PROVIDERS: ADMIT Internal Medicine; ATTEND Hospitalist
DX: G90.8 Other disorders of autonomic nervous system (principal); R00.1 Bradycardia, unspecified; I10 Essential (primary) hypertension; E11.9 Type 2 diabetes mellitus without complications; R55 Syncope and collapse
CPT/HCPCS: 36415; 70450; 71045; 80048; 81001; 82550; 82553; 82805; 82962; 83735; 84439; 84443; 84484; 85025; 85610; 87086; 93005; 93306; 93880; 99285; G0378; C8929; J2270